=== PATIENT | female | born 1965 | race Caucasian/White ===

== ENCOUNTER 2017-06-16 04:30 | Emergency (ER) | payer MEDICAID ==
[2017-06-16 04:31] VITALS: BMI 28.3
[2017-06-16 04:49] VITALS: RESP 16
--- NOTE | 2017-06-16 04:53 | C.PDOC ---
History Of Present Illness Patient presents to the ER complaining of diffuse pain. Patient has metastatic lung CA and is requesting something for the pain; she states the percocet she has is no longer working. Denies fever, chills, nausea, or vomiting. Time Seen by Provider: 06/16/17 04:53 Chief Complaint (Nursing): Lower Extremity Problem/Injury History Per: Patient History/Exam Limitations: no limitations Onset/Duration Of Symptoms: Hrs Current Symptoms Are (Timing): Still Present Severity: Moderate Pain Scale Rating Of: 4 Recent travel outside of the [place]: No Past Medical History Reviewed: Historical Data, Nursing Documentation, Vital Signs Vital Signs: Last Vital Signs Temp 99.2 F 06/16/17 04:43 Pulse 87 06/16/17 04:43 Resp 16 06/16/17 04:43 BP 120/79 06/16/17 04:43 Pulse Ox 98 06/16/17 05:21 - Medical History PMH: Malignancy Surgical History: No Surg Hx - [facility] Procedures INJECT/INFUSE NEC (08/08/14) Family History: States: Unknown Family Hx - Social History Hx Alcohol Use: No Hx Substance Use: No - Immunization History Hx Tetanus Toxoid Vaccination: No Hx Influenza Vaccination: No Hx Pneumococcal Vaccination: No Review Of Systems Constitutional: Negative for: Fever, Chills Gastrointestinal: Negative for: Nausea, Vomiting Musculoskeletal: Positive for: Other (Diffuse pain) Physical Exam - Physical Exam Appears: Non-toxic Skin: Warm, Dry Oral Mucosa: Moist Chest: Symmetrical, No Tenderness Cardiovascular: Rhythm Regular, No Murmur Respiratory: No Rales, No Rhonchi, No Wheezing Gastrointestinal/Abdominal: Soft, No Tenderness Extremity: Normal ROM (x4), No Pedal Edema Neurological/Psych: Oriented x3 ED Course And Treatment O2 Sat by Pulse Oximetry: 98 (Room air) Pulse Ox Interpretation: Normal Progress Note: Dilaudid and zofran administered. Reevaluation Time: 05:52 Reassessment Condition: Improved Disposition Counseled Patient/Family Regarding: Studies Performed, Diagnosis, Need For Followup, Rx Given - Disposition Referrals: Edin Amor MD [Medical Doctor] - Disposition: HOME/ ROUTINE Disposition Time: 04:53 Condition: FAIR Prescriptions: HYDROmorphone [Dilaudid] 1 mg PO QID PRN #15 tab PRN Reason: Pain, Severe (8-10) Ondansetron ODT [Zofran ODT] 1 odt PO BID PRN #20 odt PRN Reason: Nausea/Vomiting Polyethylene Glycol 3350 [Miralax] 17 gm PO DAILY #270 ml Instructions: Chronic Back Pain (ED) - Clinical Impression Clinical Impression: Chronic pain - Scribe Statement The provider has reviewed the documentation as recorded by the Scribneha Thomas All medical record entries made by the Laurelibneha were at my direction and personally dictated by me. I have reviewed the chart and agree that the record accurately reflects my personal performance of the history, physical exam, medical decision making, and the department course for this patient. I have also personally directed, reviewed, and agree with the discharge instructions and disposition.
[2017-06-16 06:08] VITALS: BP 111/70; PULSE 84; TEMP 98.3; O2SAT 97
== END 2017-06-16 06:10 | disposition home or self-care (01) ==
LOC: C.ER 04:30
DX: G89.29 Other chronic pain (principal)
CPT/HCPCS: 96372; 99284; J1170

== ENCOUNTER 2018-03-07 19:10 | Inpatient (IN) | payer MEDICAID, OTHER ==
[2018-03-07 19:11] VITALS: BMI 28.3
[2018-03-07] MEDS ORDERED: Albuterol-Ipratrop 3 mg / 0.5 (3 ml) UD ONE ×2 (19:50→21:03)
[2018-03-07] MEDS ORDERED: Albuterol-Ipratrop 3 mg / 0.5 (3 ml) UD INH STA (20:25)
[2018-03-07] MEDS ORDERED: Sodium Chloride 0.9% 1,000 ML IV ONE (20:54)
[2018-03-07] MEDS ORDERED: Albuterol-Ipratrop 3 mg / 0.5 (3 ml) UD IH STA (20:54)
--- NOTE | 2018-03-07 20:54 | C.PDOC ---
Time Seen by Provider: 03/07/18 20:30 Chief Complaint (Nursing): Shortness Of Breath Past Medical History Reviewed: Historical Data, Nursing Documentation, Vital Signs Vital Signs: Last Vital Signs Temp 97.7 F 03/08/18 03:07 Pulse 111 H 03/08/18 03:07 Resp 26 H 03/08/18 03:07 BP 149/95 H 03/08/18 03:07 Pulse Ox 100 03/08/18 03:07 - Medical History PMH: Malignancy (lungs) Denies: Depression - [facility] Procedures INJECT/INFUSE NEC (08/08/14) Family History: States: No Known Family Hx - Social History Hx Alcohol Use: No Hx Substance Use: No - Immunization History Hx Tetanus Toxoid Vaccination: No Hx Influenza Vaccination: No Hx Pneumococcal Vaccination: No ED Course And Treatment - Laboratory Results Result Diagrams: 03/07/18 20:58 03/07/18 20:58 O2 Sat by Pulse Oximetry: 100 Pulse Ox Interpretation: Normal - Radiology CXR: Interpreted by Me, Viewed By Me Critical Care Time - Critical Care Note Total Time (in mins): 40 Documented critical care: time excludes all time spent performing seperately billable procedures. Disposition Counseled Patient/Family Regarding: Studies Performed, Diagnosis - Disposition Disposition: HOSPITALIZED Disposition Time: 20:54 Condition: GUARDED - Clinical Impression Clinical Impression: Respiratory distress
[2018-03-07] MEDS ORDERED: Sodium Chloride 0.9% 1,000 ML ONE (21:03)
[2018-03-07 21:57] LABS: INR 1.3; PROTHROMBIN TIME 14.5 SECONDS (9.7-12.2)
[2018-03-07 23:52] LABS: ALBUMIN 3.7 g/dL (3.5-5.0); CALCIUM 8.9 mg/dl (8.6-10.4); GFR AFRICAN-AMERICAN > 60; GFR NON-AFRICAN AMERICAN > 60
[2018-03-07 23:53] LABS: ALT/SGPT 33 U/L (9-52); AST/SGOT 65 U/L (14-36); BLOOD UREA NITROGEN 13 mg/dL (7-17)
[2018-03-08] MEDS ORDERED: Iodixanol 320 mg/ml 150 ml Bottle IV ONE (00:38)
[2018-03-08 01:57] LABS: BASO % 0.4 % (0.0-2.0); EOS % 0.1 % (0.0-4.0); HEMOGLOBIN 12.6 g/dL (11.0-16.0); LYMPH % 8.9 % (20.0-40.0); MEAN CELL VOLUME 89.8 fL (81.0-99.0); MEAN CORPUSCULAR HEMOGLOBIN 29.9 pg (27.0-31.0); MEAN CORPUSCULAR HGB CONC 33.2 g/dL (33.0-37.0); MEAN PLATELET VOLUME 8.6 fL (7.2-11.7); MONO % 8.3 % (0.0-10.0); NEUT % 82.3 % (50.0-75.0); PLATELET COUNT 444 K/uL (130-400); RBC 4.22 Mil/uL (3.80-5.20); RED CELL DISTRIBUTION WIDTH 18.2 % (11.5-14.5); WHITE BLOOD COUNT 11.5 K/uL (4.8-10.8)
[2018-03-08 01:58] LABS: BASO # 0.1 K/uL (0.0-0.2); NEUT # 9.5 K/uL (1.8-7.0); NRBC % 0.3 % (0.0-2.0)
[2018-03-08 02:02] LABS: ANISOCYTOSIS SLIGHT; BANDS 3 % (0-2); EOSINOPHIL 2 % (0-4); LYMPHOCYTE 11 % (20-40); MONOCYTE 7 % (0-10); NEUTROPHIL 77 % (50-75); PLATELET ESTIMATE SLIGHTLY INCREASED (NORMAL); TOTAL CELLS COUNTED 100
--- NOTE | 2018-03-08 02:13 | CT ---
EXAM: CT Angiography Chest With Intravenous Contrast CLINICAL HISTORY: 52 years old, female; Pain; Chest pain; Additional info: SOB TECHNIQUE: Axial computed tomographic angiography images of the chest with intravenous contrast using pulmonary embolism protocol. All CT scans at this facility use one or more dose reduction techniques, viz.: automated exposure control; ma/kV adjustment per patient size (including targeted exams where dose is matched to indication; i.e. head); or iterative reconstruction technique. MIP reconstructed images were created and reviewed. Coronal and sagittal reformatted images were created and reviewed. CONTRAST: 100 mL of [id number] administered intravenously. COMPARISON: No relevant prior studies available. FINDINGS: Pulmonary arteries: No pulmonary embolism. Postsurgical changes noted in the left pulmonary arterial circulation secondary to lobectomy. Aorta: No acute findings. No thoracic aortic aneurysm. Lungs: There are postsurgical changes consistent with left lobectomy. Diffuse airspace opacities are present in the right lung. Thickened interlobular septa is identified. Pleural space: There is near complete opacification of the left hemithorax secondary to pleural effusion and consolidation with some sparing of the left upper lobe. Moderate right pleural effusion with overlying consolidation secondary to compressive atelectasis or infiltrate. No pneumothorax. Heart: Small pericardial effusion. No evidence of RV dysfunction. Mediastinum: Mediastinal shift to the left. Bones/joints: Diffuse blastic metastasis is identified in the thoracic spine and ribs. T11 vertebral body demonstrates previous vertebroplasty with moderate anterior wedge compression deformity. Mild anterior wedge compression deformity of the T9 vertebral body. Tubes, lines and devices: An infusion port is present. IMPRESSION: No pulmonary embolism. Diffuse right pulmonary airspace disease. Differential diagnosis includes infectious/inflammatory processes or neoplasia. Moderate right pleural effusion. Postsurgical changes consistent with left lobectomy with complete opacification of the left hemithorax secondary to pleural effusion and consolidation. Thickened interlobular septa can be secondary to interstitial edema or lymphocytic spread of tumor. Diffuse osseous metastasis. T9 and T11 anterior wedge compression fractures. Small pericardial effusion.
[2018-03-08] MEDS ORDERED: Albuterol 0.083% Inhal Sol (2.5 mg/3 mL) UD IH PRN (02:48)
--- NOTE | 2018-03-08 02:53 | CP.PCM.HP ---
History of Present Illness - History of Present Illness History of Present Illness: CC: shortness of breath 52 year old female with history metastatic lunger cancer s/p lobectomy presents to the ED today complaining of shortness of breath. Patient reports her symptom started 3 days ago and it has been getting progressively worse. Patient states her coughs have been non production and had a subjective fever at home. Patient was diagnosed with lung cancer approximately 4 years ago. She follows up with Dr. Shabazz for lung cancer treatments. She last saw him in January there were no changes in treatment. Patient denies sick contacts, chest pain, recent trauma, nausea, vomiting, or diarrhea. Limited ROS due to extreme lethargy. PMD: Dr. Crowley in [place] Heme/onc: Dr. Shabazz in [place] PMHx: metastatic lunger cancer PSHx: left lung lobectomy Social Hx: denies tobacco, alcohol or drug use Family Hx: non contributory Meds: fentanyl patch, megace Present on Admission - Present on Admission Any Indicators Present on Admission: No Review of Systems - Constitutional Constitutional: As Per HPI, Chills, Fever. absent: Headache - EENT Eyes: As Per HPI. absent: Discharge, Irritation Ears: As Per HPI. absent: Dizziness Nose/Mouth/Throat: As Per HPI. absent: Epistaxis, Nasal Trauma - Breasts Breasts: As Per HPI - Cardiovascular Cardiovascular: As Per HPI, Dyspnea. absent: Chest Pain - Respiratory Respiratory: As Per HPI, Cough, Dyspnea. absent: Hemoptysis - Gastrointestinal Gastrointestinal: As Per HPI. absent: Abdominal Pain, Diarrhea, Nausea, Vomiting - Genitourinary Genitourinary: As Per HPI - Reproductive: Female Reproductive:Female: As Per HPI - Menstruation Menstruation: As Per HPI - Musculoskeletal Musculoskeletal: As Per HPI. absent: Arthralgias, Neck Pain - Integumentary Integumentary: As Per HPI. absent: Rash, Swelling - Neurological Neurological: As Per HPI, Weakness - Psychiatric Psychiatric: As Per HPI - Endocrine Endocrine: As Per HPI - Hematologic/Lymphatic Hematologic: As Per HPI Past Patient History - Infectious Disease Hx of Infectious Diseases: None - Tetanus Immunizations Tetanus Immunization: Unknown - Past Social History Smoking Status: Never Smoked - PULMONARY Hx Lung Cancer: Yes - HEMATOLOGICAL/ONCOLOGICAL Hx Cancer: Yes (lung, spine, stomach, liver) - MUSCULOSKELETAL/RHEUMATOLOGICAL Other/Comment: cancer in the spine - PSYCHIATRIC Hx Depression: No Hx Substance Use: No - SURGICAL HISTORY Hx Section: Yes Other/Comment: lung surgery - ANESTHESIA Hx Anesthesia: Yes Hx Anesthesia Reactions: No Hx Malignant Hyperthermia: No Meds Allergies/Adverse Reactions: Allergies Allergy/AdvReac Type Severity Reaction Status Date / Time No Known Allergies Allergy Verified 03/07/18 19:28 Physical Exam - Constitutional Appears: No Acute Distress, Unkempt, Cachectic, Chronically Ill - Head Exam Head Exam: ATRAUMATIC, NORMOCEPHALIC - Eye Exam Eye Exam: Normal appearance, PERRL - ENT Exam ENT Exam: Mucous Membranes Dry - Neck Exam Neck exam: Positive for: Normal Inspection - Respiratory Exam Respiratory Exam: Decreased Breath Sounds, Respiratory Distress, NORMAL BREATHING PATTERN. absent: Wheezes - Cardiovascular Exam Cardiovascular Exam: REGULAR RHYTHM, +S1, +S2 Additional comments: Palpable left sided chest port - GI/Abdominal Exam GI & Abdominal Exam: Normal Bowel Sounds, Soft. absent: Tenderness - Extremities Exam Extremities exam: Positive for: pedal pulses present. Negative for: tenderness - Neurological Exam Neurological exam: Alert, Oriented x3 - Psychiatric Exam Psychiatric exam: Normal Affect, Normal Mood - Skin Skin Exam: Dry, Warm Results - Vital Signs Recent Vital Signs: Last Vital Signs Temp 98 F 03/08/18 02:05 Pulse 113 H 03/08/18 02:05 Resp 22 03/08/18 02:05 BP 165/102 H 03/08/18 02:05 Pulse Ox 100 03/08/18 02:22 - Labs Result Diagrams: 03/07/18 20:58 03/07/18 20:58 Labs: Laboratory Results - last 24 hr 03/07/18 03/07/18 03/07/18 20:58 20:58 20:58 WBC 11.5 H D RBC 4.22 Hgb 12.6 Hct 37.9 MCV 89.8 D MCH 29.9 MCHC 33.2 RDW 18.2 H Plt Count 444 H D MPV 8.6 Neut % (Auto) 82.3 H Lymph % (Auto) 8.9 L Baker % (Auto) 8.3 Eos % (Auto) 0.1 Baso % (Auto) 0.4 Neut # (Auto) 9.5 H Lymph # (Auto) 1.0 Baker # (Auto) 1.0 H Eos # (Auto) 0.0 Baso # (Auto) 0.1 Neutrophils % (Manual) 77 H Band Neutrophils % 3 H Lymphocytes % (Manual) 11 L Monocytes % (Manual) 7 Eosinophils % (Manual) 2 Platelet Estimate Slightly increased H Anisocytosis (manual) Slight PT 14.5 H INR 1.3 APTT 31 Sodium 139 Potassium 3.8 Chloride 100 Carbon Dioxide 26 Anion Gap 18 BUN 13 Creatinine 0.4 L Est GFR ( Amer) > 60 Est GFR (Non-Af Amer) > 60 Random Glucose 144 H Calcium 8.9 Magnesium 2.3 Total Bilirubin 0.9 AST 65 H ALT 33 Alkaline Phosphatase 1159 H Total Protein 7.6 Albumin 3.7 Globulin 3.8 Albumin/Globulin Ratio 1.0 Assessment & Plan - Assessment and Plan (Free Text) Assessment: Shortness of breath -Likely secondary to metastatic lung caner -O2 sat 100% on non-rebreather -WBC 11.5, afebrile -CT chest shows No PE, diffused right pulmonary disease, DDx includes infectious processes or neoplasia (see report) -Duoneb Q2 prn -Solumedrol 40mg Q12 -F/u blood culture, sputum culture, legionella, mycoplasma ag History of lung cancer -Heme/onc consulted Dr. Jhon cameron appreciated -Fentanyl patch 25mcg q72 -Megace 40mg daily Prophylactic measures -Protonix -Lovenox Discussed with attending physician All management per Dr. Rey
[2018-03-08] MEDS ORDERED: Albuterol-Ipratrop 3 mg / 0.5 (3 ml) UD INH PRN (02:57)
[2018-03-08] MEDS ORDERED: Sodium Chloride 0.9% 1,000 ML IV SCH (03:15)
[2018-03-08] MEDS ORDERED: Piperacillin/Tazobact 3.375 gm 100 ML IVPB STA (03:30)
[2018-03-08] MEDS ORDERED: Piperacill/Tazo 3.375gm in Dex 3.375 GM/50 ML BAG IVPB SCH (04:00)
[2018-03-08 06:30] LABS: ALBUMIN 3.4 g/dL (3.5-5.0); ALT/SGPT 25 U/L (9-52); AST/SGOT 50 U/L (14-36); BLOOD UREA NITROGEN 8 mg/dL (7-17); CALCIUM 8.4 mg/dl (8.6-10.4); GFR AFRICAN-AMERICAN > 60; GFR NON-AFRICAN AMERICAN > 60
--- NOTE | 2018-03-08 07:00 | RAD ---
Chest x-ray single frontal view History: Shortness of breath. Comparison: 08/15/2016 Findings: Complete opacification of the left esteban thorax. This is suggestive for effusion and or atelectasis. Prominent consolidative changes in the right mid to lower lung zone. Right chest wall port with tip extending into the right atrium. Biapical pleural thickening. Heart obscured by adjacent opacification. Degenerative changes in the spine. Impression: Complete opacification of the left esteban thorax. This is suggestive for effusion and or atelectasis. Prominent consolidative changes in the right mid to lower lung zone. Right chest wall port with tip extending into the right atrium. Biapical pleural thickening. Heart obscured by adjacent opacification. Degenerative changes in the spine.
[2018-03-08 07:24] LABS: BASO % 0.2 % (0.0-2.0); HEMOGLOBIN 11.5 g/dL (11.0-16.0); LYMPH # 0.9 K/uL (1.0-4.3); LYMPH % 8.2 % (20.0-40.0); MEAN CORPUSCULAR HEMOGLOBIN 30.1 pg (27.0-31.0); MEAN CORPUSCULAR HGB CONC 33.8 g/dL (33.0-37.0); MEAN PLATELET VOLUME 8.4 fL (7.2-11.7); MONO # 0.2 K/uL (0.0-0.8); MONO % 2.2 % (0.0-10.0); NEUT % 89.4 % (50.0-75.0); NRBC % 0.1 % (0.0-2.0); PLATELET COUNT 414 K/uL (130-400); RBC 3.83 Mil/uL (3.80-5.20); RED CELL DISTRIBUTION WIDTH 18.7 % (11.5-14.5); WHITE BLOOD COUNT 11.1 K/uL (4.8-10.8)
[2018-03-08] MEDS: MethylPREDNISolone 40 mg Vial IVP SCH ×2 (09:19→21:48)
[2018-03-08] MEDS: Enoxaparin 40 mg Syringe SC SCH (09:20)
[2018-03-08] MEDS ORDERED: Potassium Chloride 20 mEq/15 ml LIQ UD PO ONE (09:27)
[2018-03-08 09:32] LABS: LEGIONELLA AG URINE NEGATIVE (NEGATIVE)
[2018-03-08] MEDS ORDERED: Home Med 1 UNIT (Amino Acids/Protein Hydrolys [Prostat 15 G Packet] 30 ML) PO SCH (10:00)
[2018-03-08] MEDS ORDERED: Pantoprazole 40 mg EC Tab PO SCH (10:00)
[2018-03-08 11:36] LABS: ARTERIAL BLOOD GAS HCO3 26.6 mmol/L (21-28); ARTERIAL BLOOD GAS O2 SAT 98.9 % (95-98); ARTERIAL BLOOD GAS PCO2 29 mm/Hg (35-45); ARTERIAL BLOOD GAS PH 7.53 (7.35-7.45); ARTERIAL BLOOD GAS PO2 87 mm/Hg (80-100); ARTERIAL BLOOD GAS TCO2 25.1 mmol/L (22-28)
[2018-03-08 11:37] LABS: ABG ALLEN TEST POS; ARTERIAL BLOOD GAS FIO2 33 %
[2018-03-08 11:43] LABS: BANDS 1 % (0-2); LYMPHOCYTE 8 % (20-40); MYELOCYTE 1 % (0-0); NEUTROPHIL 90 % (50-75); PLATELET ESTIMATE NORMAL (NORMAL); TOTAL CELLS COUNTED 100
[2018-03-08 11:44] LABS: ANISOCYTOSIS SLIGHT; HYPOCHROMIC SLIGHT; LARGE PLATELETS PRESENT; POIKILOCYTOSIS SLIGHT
[2018-03-08] MEDS ORDERED: Morphine 4 MG/ML VIAL IVP ONE (11:57)
[2018-03-08] MEDS ORDERED: Morphine 4 MG/ML VIAL IVP STA (12:10)
[2018-03-08] MEDS ORDERED: Morphine 4 MG/ML VIAL IVP PRN (12:11)
[2018-03-08 15:14] LABS: MYCOPLASMA PNEUMONIAE IGM NEGATIVE (NEGATIVE)
--- NOTE | 2018-03-08 16:19 | CON ---
DATE: REASON FOR CONSULTATION: Metastatic carcinoma of the lung. HISTORY OF PRESENT ILLNESS: A 52-year-old female diagnosed to have carcinoma of the lung about 4 years ago, had status post lobectomy. The patient is followed up with the oncologist, Dr. Shabazz, last evaluated in January. Now, the patient is admitted with increasing shortness of breath and CAT scan confirmed metastatic disease with the lung and the bone and also large right pleural effusion on the left side is almost completely filled with the pleural fluid. I am called on consult for further evaluation and suggestion. PAST MEDICAL HISTORY: Metastatic lung cancer. PAST SURGICAL HISTORY: Left lung lobectomy. SOCIAL HISTORY: Denies ethanol abuse at the present time. Nonsmoker at the present time. FAMILY HISTORY: Noncontributory. MEDICATIONS: The patient is on fentanyl patch and Megace. ALLERGIES: DENIES ANY DRUG ALLERGY. REVIEW OF SYSTEMS: Decreased appetite, losing weight, but no fever or chills. Had some dry cough, but no sputum. Significant pain into the bone. No nausea or vomiting. No melena, hemoptysis, or hematemesis. No dysuria or hematuria. PHYSICAL EXAMINATION: GENERAL: Awake, alert, thin, emaciated, not in acute distress. VITAL SIGNS: Temperature 98.3, pulse 110, respirations 24, blood pressure 131/87. HEENT: Head: Normocephalic, atraumatic. Eyes: Conjunctivae pink. Sclerae white. Pupil reacting to light. Ear, nose, and throat normal. LUNGS: No air entry on the left side. Decreased air entry on the right side at the base. HEART: S1, S2, regular, no gallop. No murmur. ABDOMEN: Soft, nondistended, nontender. No hepatosplenomegaly. CENTRAL NERVOUS SYSTEM: No gross motor or sensory deficits. LYMPH NODE: No cervical, axillary, or inguinal lymph nodes palpable. LABORATORY DATA: WBC 11,500, hemoglobin 12.6, platelet count 444,000. Alkaline phosphatase 1159. IMPRESSION: Metastatic carcinoma of the lung to the pleura, pleural effusion, and bone. PLAN: The patient is aware of the prognosis. The patient will be evaluated by Palliative Care. Pain control should be the main goal. The patient is hospice appropriate. I will try to reach out to Dr. Shabazz to discuss with him. Thank you for letting me participate in the care of this patient and I will follow up the patient with you. Angie Ferreira MD
[2018-03-08] MEDS: Albuterol-Ipratrop 3 mg / 0.5 (3 ml) UD INH SCH ×2 (16:40→20:00)
--- NOTE | 2018-03-08 17:11 | CP.PCM.PN ---
Subjective - Date & Time of Evaluation Date of Evaluation: 03/08/18 Time of Evaluation: 17:09 - Subjective Subjective: Spoke with patient this AM. Decided on DNR/DNI. Had previously signed form at previous hospitalization Family at bedside. Discussed the care of their relative and all agreed on comfort measures at this time. Patient steadily began to decline and began to become less responsive only waking up intermittently Objective - Vital Signs/Intake and Output Vital Signs (last 24 hours): Temp Pulse Resp BP Pulse Ox 97.4 F L 112 H 22 137/90 98 03/08/18 15:54 03/08/18 16:07 03/08/18 15:54 03/08/18 15:54 03/08/18 15:54 Intake and Output: 03/08/18 03/08/18 06:59 18:59 Intake Total 580 Balance 580 - Medications Medications: Current Medications Albuterol/Ipratropium (Duoneb 3 Mg/0.5 Mg (3 Ml) Ud) 3 ml INH RQ4 [facility] Aspirin (Ecotrin) 81 mg PO DAILY [facility] Last Admin: 03/08/18 09:19 Dose: 81 mg Enoxaparin Sodium (Lovenox) 40 mg SC DAILY [facility] Last Admin: 03/08/18 09:20 Dose: 40 mg Fentanyl (Duragesic) 1 patch TD Q72 [facility] Megestrol Acetate (Megace) 40 mg PO DAILY [facility] Last Admin: 03/08/18 09:55 Dose: 40 mg Methylprednisolone (Solu-Medrol) 40 mg IVP Q12 [facility] Last Admin: 03/08/18 09:19 Dose: 40 mg Morphine Sulfate (Morphine) 4 mg IVP Q15M PRN PRN Reason: Pain, Mild (1-3) - Labs Labs: 03/08/18 05:00 03/08/18 05:00 PT 14.5 SECONDS (9.7-12.2) H 03/07/18 20:58 INR 1.3 03/07/18 20:58 APTT 31 SECONDS (21-34) 03/07/18 20:58 - Constitutional Appears: Chronically Ill - Head Exam Head Exam: ATRAUMATIC, NORMAL INSPECTION, NORMOCEPHALIC - Eye Exam Eye Exam: EOMI, Normal appearance, PERRL - ENT Exam ENT Exam: Mucous Membranes Moist, Normal Exam - Neck Exam Neck Exam: Full ROM, Normal Inspection. absent: Lymphadenopathy - Respiratory Exam Respiratory Exam: Respiratory Distress - Cardiovascular Exam Cardiovascular Exam: Tachycardia - GI/Abdominal Exam GI & Abdominal Exam: Soft, Normal Bowel Sounds. absent: Tenderness - Extremities Exam Extremities Exam: Full ROM, Normal Capillary Refill, Normal Inspection. absent : Joint Swelling, Pedal Edema - Back Exam Back Exam: NORMAL INSPECTION - Neurological Exam Neurological Exam: absent: Alert, Awake, Oriented x3 - Skin Skin Exam: Dry, Intact, Normal Color, Warm Assessment and Plan - Assessment and Plan (Free Text) Assessment: Metastatic Lung CA Hospice consult pallative care consult comfort only at this time, discussed with family and patient and this is what we agreed upon DNR/DNI Morphine 2mg Q1H at this time
--- NOTE | 2018-03-08 20:43 | CARD ---
APPROVED REPORT EKG Measurement Heart [id number] <Conclusion> Sinus tachycardia Left axis deviation Moderate voltage criteria for LVH, may be normal variant Nonspecific T wave abnormality Abnormal ECG
[2018-03-09] MEDS: Albuterol-Ipratrop 3 mg / 0.5 (3 ml) UD INH SCH ×3 (01:40→07:24)
[2018-03-09] MEDS ORDERED: Metoprolol 1 mg/ml Inj IVP ONE (06:59)
[2018-03-09] MEDS: Morphine 4 MG/ML VIAL IVP SCH ×9 (08:05→15:03)
[2018-03-09] MEDS: Enoxaparin 40 mg Syringe SC SCH (09:24)
--- NOTE | 2018-03-09 10:11 | CP.PCM.PN ---
Subjective - Date & Time of Evaluation Date of Evaluation: 03/09/18 Time of Evaluation: 10:09 - Subjective Subjective: Patient seen and examined at bedside. Continues to exhibit agonal breathing. Saturating 90 at 100% nonrebreather. Continue comfort measures Objective - Vital Signs/Intake and Output Vital Signs (last 24 hours): Temp Pulse Resp BP Pulse Ox 98.5 F 121 H 28 H 101/70 96 03/09/18 07:35 03/09/18 09:00 03/09/18 09:00 03/09/18 09:00 03/09/18 09:00 Intake and Output: 03/09/18 03/09/18 06:59 18:59 Intake Total 0 Balance 0 - Medications Medications: Current Medications Albuterol/Ipratropium (Duoneb 3 Mg/0.5 Mg (3 Ml) Ud) 3 ml INH RQ4 [facility] Last Admin: 03/09/18 07:24 Dose: 3 ml Aspirin (Ecotrin) 81 mg PO DAILY [facility] Last Admin: 03/08/18 09:19 Dose: 81 mg Enoxaparin Sodium (Lovenox) 40 mg SC DAILY [facility] Last Admin: 03/09/18 09:24 Dose: 40 mg Fentanyl (Duragesic) 1 patch TD Q72 [facility] Lorazepam (Ativan) 2 mg IVP Q6H [facility] Last Admin: 03/09/18 06:57 Dose: 2 mg Megestrol Acetate (Megace) 40 mg PO DAILY [facility] Last Admin: 03/08/18 09:55 Dose: 40 mg Morphine Sulfate (Morphine) 2 mg IVP Q1H [facility] Last Admin: 03/09/18 09:25 Dose: 2 mg - Labs Labs: 03/08/18 05:00 03/08/18 05:00 PT 14.5 SECONDS (9.7-12.2) H 03/07/18 20:58 INR 1.3 03/07/18 20:58 APTT 31 SECONDS (21-34) 03/07/18 20:58 - Constitutional Appears: Chronically Ill - Head Exam Head Exam: ATRAUMATIC, NORMAL INSPECTION, NORMOCEPHALIC - Eye Exam Eye Exam: EOMI, Normal appearance, PERRL Pupil Exam: NORMAL ACCOMODATION, PERRL - ENT Exam ENT Exam: Mucous Membranes Moist, Normal Exam - Neck Exam Neck Exam: Full ROM, Normal Inspection. absent: Lymphadenopathy - Respiratory Exam Respiratory Exam: Respiratory Distress - Cardiovascular Exam Cardiovascular Exam: Tachycardia, REGULAR RHYTHM, +S1, +S2. absent: Murmur - GI/Abdominal Exam GI & Abdominal Exam: Soft, Normal Bowel Sounds. absent: Tenderness - Extremities Exam Extremities Exam: Full ROM, Normal Capillary Refill, Normal Inspection. absent : Joint Swelling, Pedal Edema - Back Exam Back Exam: NORMAL INSPECTION - Neurological Exam Neurological Exam: absent: Alert, Awake, Oriented x3 - Psychiatric Exam Psychiatric exam: Normal Affect, Normal Mood - Skin Skin Exam: Dry, Intact, Normal Color, Warm Assessment and Plan - Assessment and Plan (Free Text) Assessment: Metastatic Lung CA Hospice consult pallative care consult - [facility]p for respiratory distress abd cancer pain management, Hospice eval for possible inhouse hospice admission comfort only at this time, discussed with family and patient and this is what we agreed upon DNR/DNI Morphine 2mg Q1H at this time Ativan 1mg Q6H
--- NOTE | 2018-03-09 12:16 | CP.PCM.CON ---
History of Present Illness - History of Present Illness History of Present Illness: Palliative consult requested by Luna PERRY for goals of care discussion Patient is a 52 yo female admitted from home with SOB X 3 days, and non productive cough, and subjective fver. Patient has known Hx of metastatic lung cancer, diagnosed 4 years ago. Patient was fallowed in community by Mele ANDREWS oncologyst. Patient was seen her by Doctor Jhon and hospice care was suggested. PMH: lung cancer, S/L left lobectomy Soc. Hx: single, has two children, sister involved in care Fam. Hx: denies Hx of Cancer Review of Systems - Review of Systems All systems: reviewed and no additional remarkable complaints except Review of Systems: ROS obtained from family as patient was very lethargic. Per family patient has been very SOB and on CPap Past Patient History - Infectious Disease Hx of Infectious Diseases: None - Tetanus Immunizations Tetanus Immunization: Unknown - Past Medical History & Family History Past Medical History?: Yes - Past Social History Smoking Status: Never Smoked - PULMONARY Hx Lung Cancer: Yes - HEMATOLOGICAL/ONCOLOGICAL Hx Cancer: Yes (lung, spine, stomach, liver) - MUSCULOSKELETAL/RHEUMATOLOGICAL Hx Falls: Yes Other/Comment: cancer in the spine - PSYCHIATRIC Hx Depression: No Hx Substance Use: No - SURGICAL HISTORY Hx Section: Yes Other/Comment: lung surgery - ANESTHESIA Hx Anesthesia: Yes Hx Anesthesia Reactions: No Hx Malignant Hyperthermia: No Meds Allergies/Adverse Reactions: Allergies Allergy/AdvReac Type Severity Reaction Status Date / Time No Known Allergies Allergy Verified 03/07/18 19:28 - Medications Medications: Current Medications Albuterol/Ipratropium (Duoneb 3 Mg/0.5 Mg (3 Ml) Ud) 3 ml INH RQ4 [facility] Last Admin: 03/09/18 07:24 Dose: 3 ml Aspirin (Ecotrin) 81 mg PO DAILY [facility] Last Admin: 03/09/18 10:32 Dose: Not Given Enoxaparin Sodium (Lovenox) 40 mg SC DAILY [facility] Last Admin: 03/09/18 09:24 Dose: 40 mg Fentanyl (Duragesic) 1 patch TD Q72 [facility] Lorazepam (Ativan) 2 mg IVP Q6H [facility] Last Admin: 03/09/18 06:57 Dose: 2 mg Megestrol Acetate (Megace) 40 mg PO DAILY [facility] Last Admin: 03/09/18 10:32 Dose: Not Given Morphine Sulfate (Morphine) 4 mg IVP Q1H [facility] Physical Exam - Constitutional Appears: In Acute Distress, Chronically Ill - Head Exam Head Exam: ATRAUMATIC, NORMAL INSPECTION, NORMOCEPHALIC - Eye Exam Eye Exam: EOMI, Normal appearance, PERRL Pupil Exam: NORMAL ACCOMODATION, PERRL - ENT Exam ENT Exam: Mucous Membranes Dry - Neck Exam Neck exam: Positive for: Normal Inspection - Respiratory Exam Respiratory Exam: Accessory Muscle Use - Cardiovascular Exam Cardiovascular Exam: Tachycardia - GI/Abdominal Exam GI & Abdominal Exam: Hyperactive Bowel Sounds - Rectal Exam Rectal Exam: Deferred - Extremities Exam Extremities exam: Positive for: pedal edema - Back Exam Back exam: NORMAL INSPECTION - Neurological Exam Neurological exam: Altered - Psychiatric Exam Psychiatric exam: Flat Affect - Skin Skin Exam: Normal Color Results - Vital Signs Recent Vital Signs: Last Vital Signs Temp 98.5 F 03/09/18 07:35 Pulse 132 H 03/09/18 10:29 Resp 28 H 03/09/18 09:00 BP 132/76 03/09/18 10:29 Pulse Ox 95 03/09/18 10:29 - Labs Result Diagrams: 03/08/18 05:00 03/08/18 05:00 Labs: Laboratory Results - last 24 hr 03/08/18 03:53 Mycoplasma pneumon IgM Negative Assessment & Plan - Assessment and Plan (Free Text) Assessment: Palliative consult DNR/DNI, PPS 10% I reviwed medical records, all diagnostic studies, examined patient in the bed Patient is very lethargic, eyes closed, C Pap on, labored breathing with accessory muscles use.O2Sat 95 %, HR 132, RR 22. Patient has minimal to none response to tactile and verbal stimuli. Abdomen flat and soft. Able to freely move upper and lower extremities, but stays still most of the time. Sister reports patient often complins of severe pain to her : ribs" and chest. Hb 11.5, WBC 11.1 Family at bed side, sister one of them. I elicited their knowledge regarding patient's condition and they all admitted knowledge of cancer diagnosis. Sister cried. I offered more information on signs and symptoms of lung cancer and its terminal prognosis. They stated understanding. I discussed comfort care and its benefits for the patient at this last stage of her life. The sister was concern patient would be dischagd home on hospice, where she has no enough support to assist patient with her needs. We discussed possibility of in house hospice what made sister more comfortable. This was discussed with primary RN, Case Managemnt and Doctor Luna. Hospice eval was called in. Impression * Chronically ill young lady due to advanced lung cancer * Respiratory distress * lethargy and general weakness * Pain cancer related * Anxiety among family Suggestions * Patient may benfit from Morphin drip for respiratory distress abd cancer pain management * Hospice eval for possible inhouse hospice admission Advance care planing time 45 min.
[2018-03-09] MEDS ORDERED: Morphine 10 mg/5 ml Oral Soln PO PRN (15:30)
[2018-03-09] MEDS ORDERED: Morphine 4 MG/ML VIAL IVP PRN (16:07)
[2018-03-09] MEDS ORDERED: Morphine 4 MG/ML VIAL IVP SCH (16:15)
[2018-03-09 16:49] VITALS: RESP 16; TEMP 99
[2018-03-09 19:44] VITALS: BP 54/39; PULSE 136; O2SAT 67
== END 2018-03-09 20:09 | DRG 82 ==
LOC: C.ER 19:10 → C.9E 03-08 02:20 → C.6T 03-08 06:39
PROVIDERS: ADMIT Internal Medicine; ATTEND Internal Medicine
PROC: 5A09457 Assistance with Respiratory Ventilation, 24-96 Consecutive Hours, Continuous Positive Airway Pressure (ICD-10-PCS; principal; 2018-03-08)
DX: C34.90 Malignant neoplasm of unspecified part of unspecified bronchus or lung (principal); C79.51 Secondary malignant neoplasm of bone; C78.2 Secondary malignant neoplasm of pleura; F41.9 Anxiety disorder, unspecified; Z51.5 Encounter for palliative care; Z66 Do not resuscitate